=== PATIENT | male | born 1945 | race Caucasian/White ===

== ENCOUNTER 2017-12-08 11:47 | Inpatient (IN) | payer MEDICARE ==
[~2017-12-08] VITALS: Ht 172.7 cm; Wt 81.8 kg
[~2017-12-08 11:47] MED LIST: CELE10TA9 PO; DOXE10CA; EMTR200; HYDR12.56 PO; LORT5TAB PO; [UNRECOGNIZED DRUG - CODE]
[2017-12-08 11:51] VITALS: BP 143/92; PULSE 93; RESP 17; TEMP 98.4; O2SAT 98
[2017-12-08 12:08] VITALS: RESP 16; O2SAT 97
[2017-12-08] MEDS ORDERED: LEVO.05 PO (12:11)
[2017-12-08] MEDS ORDERED: METF1000 PO (12:11)
[2017-12-08] MEDS ORDERED: BACL10TA PO (12:11)
[2017-12-08] MEDS ORDERED: EMTR200 PO (12:11)
[2017-12-08] MEDS ORDERED: AMBI5TAB PO (12:13)
[2017-12-08] MEDS ORDERED: PRAV40TA2 PO (12:13)
[2017-12-08] MEDS: SODIUM CHLOR 0.9% 1000 ML INJ 1,000 ML IV SCH ×2 (12:15→22:03)
[2017-12-08] MEDS ORDERED: PROCHLORPERAZINE INJ 10 MG/2 ML VIAL IV PUSH ONE (12:15)
[2017-12-08 12:39] LABS: AUTOMATED NEUTROPHIL # 5.2 TH/MM3 (1.8-7.7); BASOPHIL % 0.3 % (0.0-2.0); EOSINOPHIL % 0.6 % (0.0-4.0); HEMOGLOBIN 15.1 GM/DL (13.0-17.0); LYMPHOCYTE # 1.3 TH/MM3 (1.0-4.8); MEAN CORPUSCULAR HEMOGLOBIN 34.3 PG (27.0-34.0); MEAN PLATELET VOLUME 9.3 FL (7.0-11.0); MONO % 15.2 % (0.0-8.0); MONOCYTE # 1.2 TH/MM3 (0-0.9); NEUT % 66.9 % (16.0-70.0); PLATELET COUNT 132 TH/MM3 (150-450); RED BLOOD COUNT 4.39 MIL/MM3 (4.50-5.90); RED CELL DISTRIBUTION WIDTH 12.7 % (11.6-17.2); WHITE BLOOD COUNT 7.8 TH/MM3 (4.0-11.0)
--- NOTE | 2017-12-08 12:45 | RADRPT ---
EXAM DATE/TIME: 12/08/2017 12:13 [place] COMPARISON: No previous studies available for comparison. INDICATIONS : Nausea, vomiting, and coughing MEDICAL HISTORY : Diabetes mellitus type II. HIV. thyroid SURGICAL HISTORY : None. ENCOUNTER: Initial ACUITY: 1 month PAIN SCORE: 0/10 LOCATION: Bilateral chest FINDINGS: A single view of the chest demonstrates minimal basilar atelectasis. No effusion. No pneumothorax. He art size mildly enlarged. CONCLUSION: 1. Minimal basal atelectasis. No effusion or pneumothorax. Silas Maradiaga MD on December 08, 2017 at 12:41 Board Certified Radiologist. This report was verified electronically.
[2017-12-08 12:57] LABS: ALBUMIN 4.2 GM/DL (3.4-5.0); AST (GOT) 59 U/L (15-37); BICARBONATE 23.6 MEQ/L (21.0-32.0); BLOOD UREA NITROGEN 17 MG/DL (7-18); CALCIUM 9.1 MG/DL (8.5-10.1); CHLORIDE 103 MEQ/L (98-107); CREATININE 1.12 MG/DL (0.60-1.30); GLOMERULAR FILTRATION RATE 65 ML/MIN (>89); GLUCOSE,RANDOM 127 MG/DL (74-106); SODIUM (NA) 137 MEQ/L (136-145)
[2017-12-08 12:58] LABS: ALT (GPT) 48 U/L (12-78)
[2017-12-08 13:12] LABS: ALKALINE PHOSPHATASE 108 U/L (45-117); TOTAL BILIRUBIN ADULT 0.7 MG/DL (0.2-1.0); TOTAL PROTEIN 8.1 GM/DL (6.4-8.2); TROPONIN I LESS THAN 0.02 NG/ML (0.02-0.05)
[2017-12-08 13:28] LABS: AMORPHOUS SEDIMENT, URINE RARE; BACTERIA, URINE MOD /hpf; BILIRUBIN, URINE NEG (NEG); BLOOD, URINE MOD (NEG); GLUCOSE,URINE 300 mg/dL (NEG); KETONE, URINE TRACE mg/dL (NEG); MUCUS URINE FEW /lpf (OCC); NITRITE,URINE NEG (NEG); PH, URINE 6.5 (5.0-8.5); SQUAMOUS EPITHELIAL CELL URINE <1 /hpf (0-5); URINE COLOR YELLOW (YELLW/STRAW); URINE LEUKOCYTE ESTERASE MOD (NEG)
[2017-12-08 13:42] VITALS: BP 128/68; PULSE 84; RESP 16; TEMP 97.8; O2SAT 97
[2017-12-08] MEDS ORDERED: cefTRIAXone INJ 1,000 MG in SODIUM CHLORIDE 0.9% INJ 100 ML IV ONE (14:00)
[2017-12-08] MEDS ORDERED: BISACODYL 10 MG SUPP RECTAL PRN (14:30)
[2017-12-08] MEDS ORDERED: NALOXONE HCL 0.4 MG/ML AMP IV PUSH PRN (14:30)
[2017-12-08] MEDS ORDERED: SODIUM CHLORIDE 0.9% FLUSH 10 ML FLUSH IV FLUSH PRN (14:30)
[2017-12-08] MEDS ORDERED: LACTULOSE SYRUP 20 GM/30 ML CUP PO PRN (15:00)
[2017-12-08] MEDS ORDERED: ACETAMINOPHEN 325 MG TAB PO PRN (15:00)
[2017-12-08] MEDS ORDERED: MAGNESIUM HYDROXIDE SUSP 30 ML CUP PO PRN (15:00)
[2017-12-08] MEDS ORDERED: ONDANSETRON HCL 4 MG/2 ML VIAL IVP PRN (15:00)
[2017-12-08] MEDS ORDERED: SENNOSIDES 8.6 MG TAB PO PRN (15:00)
[2017-12-08] MEDS ORDERED: SODIUM CHLOR 0.45% 1000 ML INJ 1,000 ML IV SCH (15:00)
--- NOTE | 2017-12-08 15:08 | PD ---
HPI Chief Complaint: GI Complaint Time Seen by Provider: 12:03 Travel History International Travel<30 days: No Contact w/Intl Traveler<30days: No Traveled to known affect area: No History of Present Illness HPI 72-year-old male with a history of HIV disease, who presents today with nausea vomiting diarrhea. Patient states she has had loose stools 4 months. Patient was up on the fifth floor with his significant other when he started experiencing severe nausea and vomiting. He states he was unable to hold anything down. Reports generalized weakness. He denies any fevers, chills. He states that he has had no recent URI symptoms. He denies any abdominal pain. He states his significant other is being seen here for knee related problem from a fracture. There are no other complaints at the time of my examination. PFSH Past Medical History Autoimmune Disease: Yes (AIDS) Cardiovascular Problems: Yes (HBP) High Cholesterol: Yes Diabetes: Yes Patient Takes Glucophage: Yes Diminished Hearing: Yes Hypertension: Yes Immune Disorder: Yes (AIDS) Thyroid Disease: Yes Tetanus Vaccination: > 5 Years Influenza Vaccination: Yes Past Surgical History Tonsillectomy: Yes Other Surgery: Yes (CYST) Social History Alcohol Use: Yes (SOCIAL) Tobacco Use: Yes (OCCAS- CIGAR) Substance Use: No Allergies-Medications (Allergen,Severity, Reaction): Coded Allergies: No Known Allergies (Verified Allergy, Unknown, 12/08/17) Reported Meds & Prescriptions Reported Meds & Active Scripts Active Reported Ambien (Zolpidem Tartrate) 5 Mg Tab 5 Mg PO HS PRN Pravastatin 40 Mg Tab 40 Mg PO DAILY Metformin (Metformin HCl) 1,000 Mg Tab 1,000 Mg PO BIDPC Synthroid (Levothyroxine Sodium) 50 Mcg Tab 50 Mcg PO DAILY Emtriva (Emtricitabine) 200 Mg Cap 200 Mg PO DAILY Baclofen 10 Mg Tab 10 Mg PO TID Review of Systems Except as stated in HPI: all other systems reviewed are Neg General / Constitutional: No: Fever, Chills Eyes: No: Diploplia, Blurred Vision HENT: Positive: Headaches (Head will hurt when he vomits but not), Lightheadedness, No: Neck Stiffness, Neck Pain ( without vomiting.) Cardiovascular: No: Chest Pain or Discomfort, Palpitations, Irregular Rhythm Respiratory: No: Cough, Shortness of Breath Gastrointestinal: Positive: Nausea, Vomiting, Diarrhea, No: Abdominal Pain, Hematemesis (4 months), Hematochezia Genitourinary: Positive: Dysuria, Other (The patient self caths himself. He states he has chronic UTIs.), No: Frequency Musculoskeletal: Positive: Weakness (Generalized), No: Pain Skin: No Rash, No Lesions Neurologic: Positive: Weakness, Headache, No: Dizziness (Generalized), Sensory Disturbance (With vomiting) Physical Exam Narrative GENERAL: Well-developed male who is actively vomiting when I entered the room. SKIN: Focused skin assessment warm/dry. HEAD: Atraumatic. Normocephalic. EYES: Pupils equal and round. No scleral icterus. No injection or drainage. ENT: No nasal bleeding or discharge. Mucous membranes pink and dry. NECK: Trachea midline. No JVD. Supple. CARDIOVASCULAR: Regular rate and rhythm. No murmur appreciated. RESPIRATORY: No accessory muscle use. Clear to auscultation. Breath sounds equal bilaterally. GASTROINTESTINAL: Abdomen soft, non-tender, nondistended. No rebound or guarding. MUSCULOSKELETAL: No obvious deformities. No clubbing. No cyanosis. No edema. NEUROLOGICAL: Awake and alert. No obvious cranial nerve deficits. Motor grossly within normal limits. Normal speech. PSYCHIATRIC: Appropriate mood and affect; insight and judgment normal. Data Data Last Documented VS Vital Signs Date Time Temp Pulse Resp B/P (MAP) Pulse Ox O2 Delivery O2 Flow Rate FiO2 12/08/17 13:42 97.8 84 16 128/68 (88) 97 Room Air Orders Orders Electrocardiogram (12/08/17 12:03) Complete Blood Count With Diff (12/08/17 12:03) Comprehensive Metabolic Panel (12/08/17 12:03) Ckmb (Isoenzyme) Profile (12/08/17 12:03) Troponin I (12/08/17 12:03) Lipase (12/08/17 12:03) Urinalysis - C+S If Indicated (12/08/17 12:03) Enteric Path (Stool) (12/08/17 12:03) C Diff Toxin Pcr (12/08/17 12:03) Chest, Single Ap (12/08/17 12:03) Iv Access Insert/Monitor (12/08/17 12:03) Ecg Monitoring (12/08/17 12:03) Oximetry (12/08/17 12:03) Giardia Antigen (Stool) (12/08/17 12:03) Stool Ova And Parasite Screen (12/08/17 12:03) Prochlorperazine Inj (Compazine Inj) (12/08/17 12:15) Sodium Chlor 0.9% 1000 Ml Inj (Ns 1000 M (12/08/17 12:15) Cath For Specimen (12/08/17 12:37) CKMB (12/08/17 12:14) CKMB% (12/08/17 12:14) Urine Culture (12/08/17 12:40) Blood Culture (12/08/17 14:00) Ceftriaxone Inj (Rocephin Inj) (12/08/17 14:00) Admit To Inpatient (12/08/17 ) Vital Signs (Adult) Q4H (12/08/17 14:18) Activity Oob Ad [place] (12/08/17 14:18) Diet 1800 Ada Cons Carb (12/08/17 Dinner) Sodium Chlor 0.45% 1000 Ml Inj (1/2 Ns 1 (12/08/17 15:00) Sodium Chloride 0.9% Flush (Ns Flush) (12/08/17 14:30) Sodium Chloride 0.9% Flush (Ns Flush) (12/08/17 21:00) Acetaminophen (Tylenol) (12/08/17 15:00) Ondansetron Inj (Zofran Inj) (12/08/17 15:00) Basic Metabolic Panel (Bmp) (12/09/17 06:00) Complete Blood Count With Diff (12/09/17 06:00) Scd Bilateral/Knee High OSMANY.BID (12/08/17 14:18) Naloxone Inj (Narcan Inj) (12/08/17 14:30) Magnesium Hydroxide Liq (Milk Of Magnesi (12/08/17 15:00) Sennosides (Senokot) (12/08/17 15:00) Bisacodyl Supp (Dulcolax Supp) (12/08/17 14:30) Lactulose Liq (Lactulose Liq) (12/08/17 15:00) Admit Order (Ed Use Only) (12/08/17 14:57) Labs Laboratory Tests Test 12/08/17 12:14 12/08/17 12:40 White Blood Count 7.8 TH/MM3 Red Blood Count 4.39 MIL/MM3 Hemoglobin 15.1 GM/DL Hematocrit 43.0 % Mean Corpuscular Volume 98.0 FL Mean Corpuscular Hemoglobin 34.3 PG Mean Corpuscular Hemoglobin Concent 35.0 % Red Cell Distribution Width 12.7 % Platelet Count 132 TH/MM3 Mean Platelet Volume 9.3 FL Neutrophils (%) (Auto) 66.9 % Lymphocytes (%) (Auto) 17.0 % Monocytes (%) (Auto) 15.2 % Eosinophils (%) (Auto) 0.6 % Basophils (%) (Auto) 0.3 % Neutrophils # (Auto) 5.2 TH/MM3 Lymphocytes # (Auto) 1.3 TH/MM3 Monocytes # (Auto) 1.2 TH/MM3 Eosinophils # (Auto) 0.0 TH/MM3 Basophils # (Auto) 0.0 TH/MM3 CBC Comment DIFF FINAL Differential Comment Blood Urea Nitrogen 17 MG/DL Creatinine 1.12 MG/DL Random Glucose 127 MG/DL Total Protein 8.1 GM/DL Albumin 4.2 GM/DL Calcium Level 9.1 MG/DL Alkaline Phosphatase 108 U/L Aspartate Amino Transf (AST/SGOT) 59 U/L Alanine Aminotransferase (ALT/SGPT) 48 U/L Total Bilirubin 0.7 MG/DL Sodium Level 137 MEQ/L Potassium Level 3.8 MEQ/L Chloride Level 103 MEQ/L Carbon Dioxide Level 23.6 MEQ/L Anion Gap 10 MEQ/L Estimat Glomerular Filtration Rate 65 ML/MIN Total Creatine Kinase 1168 U/L Creatine Kinase MB 6.2 NG/ML Creatine Kinase MB % 0.5 % Troponin I LESS THAN 0.02 NG/ML Lipase 254 U/L Urine Color YELLOW Urine Turbidity CLEAR Urine pH 6.5 Urine Specific [place] 1.018 Urine Protein 30 mg/dL Urine Glucose (UA) 300 mg/dL Urine Ketones TRACE mg/dL Urine Occult Blood MOD Urine Nitrite NEG Urine Bilirubin NEG Urine Urobilinogen LESS THAN 2.0 MG/DL Urine Leukocyte Esterase MOD Urine RBC 6 /hpf Urine WBC 37 /hpf Urine Squamous Epithelial Cells <1 /hpf Urine Amorphous Sediment RARE Urine Bacteria MOD /hpf Urine Mucus FEW /lpf Microscopic Urinalysis Comment CULTURE INDICATED MDM Medical Decision Making Medical Screen Exam Complete: Yes Emergency Medical Condition: Yes Differential Diagnosis Gastroenteritis versus metabolic derangement versus UTI Narrative Course 72-year-old male presents with nausea vomiting. Patient also states he has had foul-smelling urine and discomfort when trying to urinate. He does self cath himself as well. The patient is noted to have a UTI. He is also noted to have rhabdomyolysis. He has been started on IV fluids. He has been started on Rocephin. Cultures have been sent. Diagnosis Primary Impression: Rhabdomyolysis Additional Impressions: UTI (urinary tract infection) History of HIV disease Admitting Information Admitting Physician Requests: Admit Guy Velasco MD Dec 08, 2017 15:08
[2017-12-08 15:45] VITALS: BP 108/81; TEMP 97.7
[2017-12-08 16:00] VITALS: BP 129/75; PULSE 81; RESP 20; TEMP 99.4; O2SAT 96
[2017-12-08] MEDS ORDERED: DEXTROSE 50% IN WATER 50 ML VIAL(D50) IV PUSH PRN (18:00)
[2017-12-08] MEDS ORDERED: GLUCAGON 1 MG/ML VIAL OTHER PRN (18:00)
[2017-12-08] MEDS ORDERED: ZOLPIDEM TARTRATE 5 MG TAB PO PRN (18:00)
--- NOTE | 2017-12-08 18:03 | HHI.HP ---
HPI Service [facility] Primary Care Physician Unknown Admission Diagnosis rhabdomyolisis, uti, diarrhea, hx of hiv disease Diagnoses: (1) Diarrhea (2) Rhabdomyolysis (3) UTI (urinary tract infection) Chief Complaint: Intractable nausea and vomiting Travel History International Travel<30 Days: No Contact w/Intl Traveler <30 Da: No Traveled to Known Affected Are: No History of Present Illness 72-year-old man with a history of HIV presenting to the ED for evaluation of 3 day history of intractable nausea and vomiting as well as formal history of loose stools. Patient report shortness of breath as well as abdominal pain otherwise denies any chest pain. He was found in the ED to have CK of 1100+ as well as abnormal UA for which she was started on Rocephin IV. Patient denies any GI bleed. Review of Systems Except as stated in HPI: all other systems reviewed are Neg Past Family Social History Past Medical History Autoimmune Disease: Yes (AIDS) Cardiovascular Problems: Yes (HBP) High Cholesterol: Yes Diabetes: Yes Patient Takes Glucophage: Yes Diminished Hearing: Yes Hypertension: Yes Immune Disorder: Yes (AIDS) Thyroid Disease: Yes Past Surgical History Tonsillectomy: Yes Other Surgery: Yes (CYST) Reported Medications Ambien (Zolpidem Tartrate) 5 Mg Tab 5 Mg PO HS PRN Pravastatin 40 Mg Tab 40 Mg PO DAILY Metformin (Metformin HCl) 1,000 Mg Tab 1,000 Mg PO BIDPC Synthroid (Levothyroxine Sodium) 50 Mcg Tab 50 Mcg PO DAILY Emtriva (Emtricitabine) 200 Mg Cap 200 Mg PO DAILY Baclofen 10 Mg Tab 10 Mg PO TID Allergies: Coded Allergies: No Known Allergies (Verified Allergy, Unknown, 12/08/17) Family History Family history positive for heart disease. Social History Alcohol Use: Yes (SOCIAL) Tobacco Use: Yes (OCCAS- CIGAR) Substance Use: No Physical Exam Vital Signs Vital Signs Date Time Temp Pulse Resp B/P (MAP) Pulse Ox O2 Delivery O2 Flow Rate FiO2 12/08/17 15:45 97.7 76 15 108/81 (90) 99 12/08/17 13:42 97.8 84 16 128/68 (88) 97 Room Air 12/08/17 12:08 16 97 Room Air 12/08/17 11:55 17 12/08/17 11:51 98.4 93 17 143/92 (109) 98 Physical Exam GENERAL: This is a well-nourished, well-developed patient, in no apparent distress. SKIN: No rashes, ecchymoses or lesions. Cool and dry. HEAD: Atraumatic. Normocephalic. No temporal or scalp tenderness. EYES: Pupils equal round and reactive. Extraocular motions intact. No scleral icterus. No injection or drainage. ENT: Nose without bleeding, purulent drainage or septal hematoma. Throat without erythema, tonsillar hypertrophy or exudate. Uvula midline. Airway patent. NECK: Trachea midline. No JVD or lymphadenopathy. Supple, nontender, no meningeal signs. CARDIOVASCULAR: Regular rate and rhythm without murmurs, gallops, or rubs. RESPIRATORY: Clear to auscultation. Breath sounds equal bilaterally. No wheezes , rales, or rhonchi. GASTROINTESTINAL: Abdomen soft, non-tender, nondistended. No hepato-splenomegaly , or palpable masses. No guarding. MUSCULOSKELETAL: Extremities without clubbing, cyanosis, or edema. No joint tenderness, effusion, or edema noted. No calf tenderness. Negative Homans sign bilaterally. NEUROLOGICAL: Awake and alert. Cranial nerves II through XII intact. Motor and sensory grossly within normal limits. Five out of 5 muscle strength in all muscle groups. Normal speech. Laboratory Laboratory Tests Test 12/08/17 12:14 12/08/17 12:40 White Blood Count 7.8 Red Blood Count 4.39 Hemoglobin 15.1 Hematocrit 43.0 Mean Corpuscular Volume 98.0 Mean Corpuscular Hemoglobin 34.3 Mean Corpuscular Hemoglobin Concent 35.0 Red Cell Distribution Width 12.7 Platelet Count 132 Mean Platelet Volume 9.3 Neutrophils (%) (Auto) 66.9 Lymphocytes (%) (Auto) 17.0 Monocytes (%) (Auto) 15.2 Eosinophils (%) (Auto) 0.6 Basophils (%) (Auto) 0.3 Neutrophils # (Auto) 5.2 Lymphocytes # (Auto) 1.3 Monocytes # (Auto) 1.2 Eosinophils # (Auto) 0.0 Basophils # (Auto) 0.0 CBC Comment DIFF FINAL Differential Comment Blood Urea Nitrogen 17 Creatinine 1.12 Random Glucose 127 Total Protein 8.1 Albumin 4.2 Calcium Level 9.1 Alkaline Phosphatase 108 Aspartate Amino Transf (AST/SGOT) 59 Alanine Aminotransferase (ALT/SGPT) 48 Total Bilirubin 0.7 Sodium Level 137 Potassium Level 3.8 Chloride Level 103 Carbon Dioxide Level 23.6 Anion Gap 10 Estimat Glomerular Filtration Rate 65 Total Creatine Kinase 1168 Creatine Kinase MB 6.2 Creatine Kinase MB % 0.5 Troponin I LESS THAN 0.02 Lipase 254 Urine Color YELLOW Urine Turbidity CLEAR Urine pH 6.5 Urine Specific [place] 1.018 Urine Protein 30 Urine Glucose (UA) 300 Urine Ketones TRACE Urine Occult Blood MOD Urine Nitrite NEG Urine Bilirubin NEG Urine Urobilinogen LESS THAN 2.0 Urine Leukocyte Esterase MOD Urine RBC 6 Urine WBC 37 Urine Squamous Epithelial Cells <1 Urine Amorphous Sediment RARE Urine Bacteria MOD Urine Mucus FEW Microscopic Urinalysis Comment CULTURE INDICATED Date/Time Source Procedure Growth Status 12/08/17 14:15 Blood Peripheral Aerobic Blood Culture Pending Received 12/08/17 14:15 Blood Peripheral Anaerobic Blood Culture Pending Received 12/08/17 12:40 Urine Clean Catch Urine Culture Pending Received Result Diagram: 12/08/17 1214 12/08/17 1214 Imaging Last Impressions Chest X-Ray 12/08/17 1203 Signed Impressions: Service Date/Time: Friday, December 08, 2017 12:13 - CONCLUSION: 1. Minimal basal atelectasis. No effusion or pneumothorax. Silas Maradiaga MD Septic Shock Reassessment Septic shock perfusion: reassessment completed Caprini VTE Risk Assessment Caprini VTE Risk Assessment: Mod/High Risk (score >= 2) Caprini Risk Assessment Model Point Value = 1 Point Value = 2 Point Value = 3 Point Value = 5 Age 41-60 Minor surgery BMI > 25 kg/m2 Swollen legs Varicose veins or History of unexplained or recurrent spontaneous Oral contraceptives or hormone replacement Sepsis (< 1 month) Serious lung disease, including pneumonia (< 1 month) Abnormal pulmonary function Acute myocardial infarction Congestive heart failure (< 1 month) History of inflammatory bowel disease Medical patient at bed rest Age 61-74 Arthroscopic surgery Major open surgery (> 45 min) Laparoscopic surgery (> 45 min) Malignancy Confined to bed (> 72 hours) Immobilizing plaster cast Central venous access Age >= 75 History of VTE Family history of VTE Factor V Leiden Prothrombin [id number] Lupus anticoagulant Anticardiolipin antibodies Elevated serum homocysteine Heparin-induced thrombocytopenia Other congenital or acquired thrombophilia Stroke (< 1 month) Elective arthroplasty Hip, pelvis, or leg fracture Acute spinal cord injury (< 1 month) Prophylaxis Regimen Total Risk Factor Score Risk Level Prophylaxis Regimen 0-1 Low Early ambulation 2 Moderate Order ONE of the following: *Sequential Compression Device (SCD) *Heparin 5000 units SQ BID 3-4 Higher Order ONE of the following medications: *Heparin 5000 units SQ TID *Enoxaparin/Lovenox 40 mg SQ daily (WT < 150 kg, CrCl > 30 mL/min) *Enoxaparin/Lovenox 30 mg SQ daily (WT < 150 kg, CrCl > 10-29 mL/min) *Enoxaparin/Lovenox 30 mg SQ BID (WT < 150 kg, CrCl > 30 mL/min) AND/OR *Sequential Compression Device (SCD) 5 or more Highest Order ONE of the following medications: *Heparin 5000 units SQ TID (Preferred with Epidurals) *Enoxaparin/Lovenox 40 mg SQ daily (WT < 150 kg, CrCl > 30 mL/min) *Enoxaparin/Lovenox 30 mg SQ daily (WT < 150 kg, CrCl > 10-29 mL/min) *Enoxaparin/Lovenox 30 mg SQ BID (WT < 150 kg, CrCl > 30 mL/min) AND *Sequential Compression Device (SCD) Assessment and Plan Problem List: (1) Rhabdomyolysis ICD Code: M62.82 - Rhabdomyolysis Status: Acute (2) UTI (urinary tract infection) ICD Code: N39.0 - Urinary tract infection, site not specified Status: Acute (3) Diarrhea ICD Code: R19.7 - Diarrhea, unspecified Assessment and Plan 72 years old man with Diarrhea r/o C diff diarrhea with PCR Check Stool for Ova and Parasites Due to patient history of HIV, will check Cryptospora, Cryptosporidium, Giardia, Rota and Enteric path Rhabdomyo Treat with IVF hydration,Monitor CK UTI Continue with Rocephin IV [id number] pending Urine culture HIV Resume HAART therapy Hypertension, Hyperlipidemia, Hypothyroidism Resume outpatient medications Diabetes 2 Resume Metformin and start ISS DVT prophylaxis: B-SCDs Code Status Full code Discussed Condition With Patient, ED physician Physician Certification 2 Midnight Certification Type: Admission for Inpatient Services Order for Inpatient Services The services are ordered in accordance with Medicare regulations or non- Medicare payer requirements, as applicable. In the case of services not specified as inpatient-only, they are appropriately provided as inpatient services in accordance with the 2-midnight benchmark. Estimated LOS (days): 2 days is the estimated time the patient will need to remain in the hospital, assuming treatment plan goals are met and no additional complications. Post-Hospital Plan: Not yet determined Abdoul Crouch MD Dec 08, 2017 18:03
[2017-12-08] MEDS ORDERED: RESP: ALBUTEROL 2.5 MG/IPRATROPIUM 0.5 MG NEB (PRN) NEB (18:30)
[2017-12-08] MEDS ORDERED: BENZONATATE 100 MG CAP PO PRN (18:30)
[2017-12-08] MEDS ORDERED: ENALAPRILAT 2.5 MG/2 ML VIAL IV PUSH PRN (18:30)
[2017-12-08] MEDS: metFORMIN HCL 500 MG TAB PO SCH (18:56)
[2017-12-08] MEDS: BACLOFEN 10 MG TAB PO SCH (18:56)
[2017-12-08] MEDS ORDERED: EMTR1TAB4 PO (19:47)
[2017-12-08] MEDS ORDERED: TIMO0.5S30 RIGHT EYE (19:47)
[2017-12-08 20:00] VITALS: BP 137/81; PULSE 80; RESP 20; TEMP 99.8; O2SAT 95
[2017-12-08] MEDS: SODIUM CHLORIDE 0.9% FLUSH 10 ML FLUSH IV FLUSH SCH (21:00)
[2017-12-08] MEDS: INSULIN ASPART SUPPLEMENTAL SCALE SQ SCH (21:00)
--- NOTE | 2017-12-08 21:39 | HHI.PR ---
Addendum to Inpatient Note Addendum Reason: Additional Documentation Additional Information Discussion between pharmacist, nurse, and me regarding patient's antiretroviral medication regimen - there is some duplication of medication in the med rec as it stands. The nurse has discussed this with the patient and the medications will be brought in tomorrow so that they can be personally viewed by the RN and medication reconciliation can be corrected. In the interim, all HIV medications are on hold until home medication reconciliation is completed as, per pharmacist, they are of limited benefit as currently ordered. Eufemia Sweeney Dec 08, 2017 21:39
[2017-12-08] MEDS: guaiFENesin E.R. 600 MG TAB PO SCH (22:08)
[2017-12-08] MEDS: TIMOLOL MALEATE 0.5% OPHT SOLN 5 ML BTL RIGHT EYE SCH (22:08)
[2017-12-09] VITALS: BP 144/76; PULSE 76; RESP 18; TEMP 98.2; O2SAT 95
[2017-12-09] MEDS: SODIUM CHLOR 0.9% 1000 ML INJ 1,000 ML IV SCH ×4 (02:32→22:15)
[2017-12-09 04:00] VITALS: BP 108/64; PULSE 81; RESP 16; TEMP 98.4; O2SAT 95
[2017-12-09] MEDS: LEVOTHYROXINE SODIUM 50 MCG TAB PO SCH (06:06)
[2017-12-09 08:00] VITALS: BP 146/79; PULSE 76; RESP 20; TEMP 99.1; O2SAT 94
[2017-12-09] MEDS: INSULIN ASPART SUPPLEMENTAL SCALE SQ SCH ×4 (08:00→20:20)
[2017-12-09 08:37] LABS: AUTOMATED NEUTROPHIL # 3.4 TH/MM3 (1.8-7.7); BASOPHIL % 0.4 % (0.0-2.0); EOSINOPHIL % 0.3 % (0.0-4.0); HEMATOCRIT 37.6 % (39.0-51.0); HEMOGLOBIN 13.4 GM/DL (13.0-17.0); LYMPH % 24.9 % (9.0-44.0); LYMPHOCYTE # 1.4 TH/MM3 (1.0-4.8); MEAN CELL VOLUME 97.2 FL (80.0-100.0); MEAN CORPUSCULAR HEMOGLOBIN 34.7 PG (27.0-34.0); MEAN CORPUSCULAR HGB CONC 35.7 % (32.0-36.0); MEAN PLATELET VOLUME 8.7 FL (7.0-11.0); MONO % 14.7 % (0.0-8.0); MONOCYTE # 0.8 TH/MM3 (0-0.9); NEUT % 59.7 % (16.0-70.0); PLATELET COUNT 104 TH/MM3 (150-450); RED BLOOD COUNT 3.87 MIL/MM3 (4.50-5.90); RED CELL DISTRIBUTION WIDTH 12.8 % (11.6-17.2); WHITE BLOOD COUNT 5.7 TH/MM3 (4.0-11.0)
[2017-12-09] MEDS: SODIUM CHLORIDE 0.9% FLUSH 10 ML FLUSH IV FLUSH SCH ×2 (09:00→20:20)
[2017-12-09] MEDS ORDERED: EMTRICITABINE 200 MG CAP PO SCH (09:00)
[2017-12-09 09:03] LABS: BICARBONATE 25.4 MEQ/L (21.0-32.0); BLOOD UREA NITROGEN 14 MG/DL (7-18); CALCIUM 8.2 MG/DL (8.5-10.1); CHLORIDE 105 MEQ/L (98-107); CREATININE 0.85 MG/DL (0.60-1.30); GLOMERULAR FILTRATION RATE 89 ML/MIN (>89); GLUCOSE,RANDOM 120 MG/DL (74-106); SODIUM (NA) 140 MEQ/L (136-145)
[2017-12-09] MEDS: TIMOLOL MALEATE 0.5% OPHT SOLN 5 ML BTL RIGHT EYE SCH ×2 (09:15→20:29)
[2017-12-09] MEDS: guaiFENesin E.R. 600 MG TAB PO SCH ×2 (09:16→20:28)
[2017-12-09] MEDS: metFORMIN HCL 500 MG TAB PO SCH ×2 (09:16→17:53)
[2017-12-09] MEDS: PRAVASTATIN SOD 40 MG TAB PO SCH (09:16)
[2017-12-09] MEDS: cefTRIAXone INJ 1,000 MG in SODIUM CHLORIDE 0.9% INJ 100 ML IV SCH (09:16)
[2017-12-09] MEDS: BACLOFEN 10 MG TAB PO SCH ×3 (09:23→17:52)
--- NOTE | 2017-12-09 11:09 | HHI.PR ---
Subjective Remarks Follow intractable nausea and emesis/HIV diarrhea/rhabdomyolysis 12/09/17-patient seen and examined; reports some improvement of nausea and emesis since admission. NO diarrhea as well since admission. Objective Vitals Vital Signs Date Time Temp Pulse Resp B/P (MAP) Pulse Ox O2 Delivery O2 Flow Rate FiO2 12/09/17 08:00 99.1 76 20 146/79 (101) 94 12/09/17 04:00 Room Air 12/09/17 04:00 98.4 81 16 108/64 (79) 95 12/09/17 00:00 98.2 76 18 144/76 (98) 95 12/09/17 00:00 Room Air 12/08/17 20:00 Room Air 12/08/17 20:00 99.8 80 20 137/81 (99) 95 12/08/17 16:00 99.4 81 20 129/75 (93) 96 12/08/17 15:45 97.7 76 15 108/81 (90) 99 12/08/17 13:42 97.8 84 16 128/68 (88) 97 Room Air 12/08/17 12:08 16 97 Room Air 12/08/17 11:55 17 12/08/17 11:51 98.4 93 17 143/92 (109) 98 I/O 12/08/17 12/08/17 12/08/17 12/09/17 12/09/17 12/09/17 07:00 15:00 23:00 07:00 15:00 23:00 Intake Total 1100 ml 823 ml 1720 ml Output Total 550 ml 750 ml Balance 1100 ml 273 ml 970 ml Intake Oral 720 ml IV Total 1100 ml 823 ml 1000 ml Output Urine Total 550 ml 750 ml # Voids 3 # Bowel Movements 0 Result Diagram: 12/09/17 0815 12/09/17 0815 Imaging Last Impressions Chest X-Ray 12/08/17 1203 Signed Impressions: Service Date/Time: Friday, December 08, 2017 12:13 - CONCLUSION: 1. Minimal basal atelectasis. No effusion or pneumothorax. Silas Maradiaga MD Objective Remarks GENERAL: NAD SKIN: Warm and dry. HEAD: Normocephalic. EYES: No scleral icterus. No injection or drainage. NECK: Supple, trachea midline. No JVD or lymphadenopathy. CARDIOVASCULAR: Regular rate and rhythm without murmurs, gallops, or rubs. RESPIRATORY: Breath sounds equal bilaterally. No accessory muscle use. GASTROINTESTINAL: Abdomen soft, non-tender, nondistended. MUSCULOSKELETAL: No cyanosis, or edema. BACK: Nontender without obvious deformity. No CVA tenderness. A/P Problem List: (1) Diarrhea ICD Code: R19.7 - Diarrhea, unspecified (2) Rhabdomyolysis ICD Code: M62.82 - Rhabdomyolysis Status: Acute (3) UTI (urinary tract infection) ICD Code: N39.0 - Urinary tract infection, site not specified Status: Acute Assessment and Plan 72 years old man with Diarrhea-likely HIV Diarrhea C diff PCR negative Continue to monitor Stool for Ova and Parasites Due to patient history of HIV, continue Cryptospora, Cryptosporidium, Giardia , and Enteric path. Rota negative Rhabdomyolysis Continue with IVF hydration,Monitor CK UTI Continue with Rocephin IV [id number] pending Urine culture HIV Continue HAART therapy Hypertension, Hyperlipidemia, Hypothyroidism Continue outpatient medications Diabetes 2 Continue Metformin and start ISS DVT prophylaxis: Yesy-Abdoul Hair MD Dec 09, 2017 11:09
[2017-12-09 12:00] VITALS: BP 125/79; PULSE 77; RESP 20; TEMP 98.6; O2SAT 95
[2017-12-09 16:00] VITALS: BP 133/80; PULSE 77; RESP 20; TEMP 98.6; O2SAT 94
[2017-12-09 16:59] LABS: HEMOGLOBIN A1C 6.1 % (4.3-6.0)
--- NOTE | 2017-12-09 18:27 | EKG ---
Date Performed: 12/08/2017 Time Performed: 12:23:51 PTAGE: 72 years EKG: Sinus rhythm NONSPECIFIC ST & T-WAVE ABNORMALITY BORDERLINE ECG NO PREVIOUS TRACING DOCTOR: Kathryn Nava Interpretating Date/Time 12/09/2017 18:21:13
[2017-12-09 20:00] VITALS: BP 145/88; PULSE 70; RESP 18; TEMP 97.7; O2SAT 97
[2017-12-09] MEDS ORDERED: [UNRECOGNIZED DRUG - OTHER] PO SCH (22:00)
[2017-12-09] MEDS ORDERED: NEVI200T PO (23:02)
[2017-12-09] MEDS ORDERED: VENL75TA (23:02)
[2017-12-09] MEDS ORDERED: MIRT1TAB PO (23:02)
[2017-12-09] MEDS ORDERED: LATA0.002 RIGHT EYE (23:02)
[2017-12-09] MEDS ORDERED: LISI-515 PO (23:02)
[2017-12-09] MEDS ORDERED: LATANOPROST 0.005% OPHT SOLN 2.5 ML BTL RIGHT EYE SCH (23:45)
[2017-12-09] MEDS: NEVIRAPINE 200 MG TAB PO SCH (23:45)
[2017-12-09] MEDS ORDERED: PILL SPLITTER OTHER PRN (23:45)
[2017-12-09] MEDS ORDERED: MIRTAZAPINE 15 MG TAB PO SCH (23:45)
[2017-12-10] VITALS: BP 157/90; PULSE 66; RESP 16; TEMP 98.4; O2SAT 96
[2017-12-10 04:00] VITALS: BP 134/74; PULSE 69; RESP 16; TEMP 97.9; O2SAT 96
[2017-12-10] MEDS: SODIUM CHLOR 0.9% 1000 ML INJ 1,000 ML IV SCH ×2 (04:55→11:36)
[2017-12-10] MEDS: LEVOTHYROXINE SODIUM 50 MCG TAB PO SCH (06:03)
[2017-12-10] MEDS: INSULIN ASPART SUPPLEMENTAL SCALE SQ SCH ×2 (08:00→12:45)
[2017-12-10 08:08] VITALS: BP 143/87; PULSE 71; RESP 18; TEMP 98.4; O2SAT 96
[2017-12-10] MEDS: cefTRIAXone INJ 1,000 MG in SODIUM CHLORIDE 0.9% INJ 100 ML IV SCH (08:57)
[2017-12-10] MEDS: BACLOFEN 10 MG TAB PO SCH ×2 (08:59→12:46)
[2017-12-10] MEDS ORDERED: TIMOLOL MALEATE 0.5% OPHT SOLN 5 ML BTL RIGHT EYE SCH (09:00)
[2017-12-10] MEDS: PRAVASTATIN SOD 40 MG TAB PO SCH (09:00)
[2017-12-10] MEDS: NEVIRAPINE 200 MG TAB PO SCH (09:00)
[2017-12-10] MEDS: SODIUM CHLORIDE 0.9% FLUSH 10 ML FLUSH IV FLUSH SCH (09:00)
[2017-12-10] MEDS ORDERED: LISINOPRIL 20 MG TAB PO SCH (09:00)
[2017-12-10] MEDS: guaiFENesin E.R. 600 MG TAB PO SCH (09:00)
[2017-12-10] MEDS ORDERED: VENLAFAXINE HCL 75 MG TAB PO SCH (09:00)
[2017-12-10] MEDS: metFORMIN HCL 500 MG TAB PO SCH (09:01)
[2017-12-10 12:08] VITALS: BP 133/73; PULSE 70; RESP 18; TEMP 97.9; O2SAT 96
--- NOTE | 2017-12-10 12:30 | HHI.PR ---
Subjective Remarks Follow intractable nausea and emesis/HIV diarrhea/rhabdomyolysis 12/09/17-patient seen and examined; reports some improvement of nausea and emesis since admission. NO diarrhea as well since admission. 12/10/17-patient seen and examined, still with some episodes of diarrhea however improved. Afebrile Objective Vitals Vital Signs Date Time Temp Pulse Resp B/P (MAP) Pulse Ox O2 Delivery O2 Flow Rate FiO2 12/10/17 08:08 98.4 71 18 143/87 (105) 96 12/10/17 07:00 Room Air 12/10/17 04:00 97.9 69 16 134/74 (94) 96 12/10/17 00:00 98.4 66 16 157/90 (112) 96 12/09/17 20:00 Room Air 12/09/17 20:00 97.7 70 18 145/88 (107) 97 12/09/17 16:00 98.6 77 20 133/80 (97) 94 I/O 12/09/17 12/09/17 12/09/17 12/10/17 12/10/17 12/10/17 07:00 15:00 23:00 07:00 15:00 23:00 Intake Total 1720 ml 1960 ml 1000 ml Output Total 750 ml 450 ml 300 ml Balance 970 ml 1510 ml 1000 ml -300 ml Intake Oral 720 ml 960 ml IV Total 1000 ml 1000 ml 1000 ml Output Urine Total 750 ml 450 ml 300 ml # Voids 3 # Bowel Movements 0 3 Result Diagram: 12/09/17 0815 12/09/17 0815 Objective Remarks GENERAL: NAD SKIN: Warm and dry. HEAD: Normocephalic. EYES: No scleral icterus. No injection or drainage. NECK: Supple, trachea midline. No JVD or lymphadenopathy. CARDIOVASCULAR: Regular rate and rhythm without murmurs, gallops, or rubs. RESPIRATORY: Breath sounds equal bilaterally. No accessory muscle use. GASTROINTESTINAL: Abdomen soft, non-tender, nondistended. MUSCULOSKELETAL: No cyanosis, or edema. BACK: Nontender without obvious deformity. No CVA tenderness. Procedures none A/P Problem List: (1) Diarrhea ICD Code: R19.7 - Diarrhea, unspecified (2) Rhabdomyolysis ICD Code: M62.82 - Rhabdomyolysis Status: Acute (3) UTI (urinary tract infection) ICD Code: N39.0 - Urinary tract infection, site not specified Status: Acute Assessment and Plan 72 years old man with Diarrhea-likely HIV Diarrhea C diff PCR negative Stool for Ova and Parasites negative Due to patient history of HIV, Cryptospora, Cryptosporidium pending, Giardia pending, and Enteric path negative. Rota negative Rhabdomyolysis Continue with IVF hydration,Monitor CK UTI d/c Rocephin IV as Urine culture negative HIV Continue HAART therapy Hypertension, Hyperlipidemia, Hypothyroidism Continue outpatient medications Diabetes 2 Continue Metformin and start ISS DVT prophylaxis: B-SCDs Problem Qualifiers (1) Diarrhea: Qualified Codes: R19.7 - Diarrhea, unspecified (2) Rhabdomyolysis: Qualified Codes: M62.82 - Rhabdomyolysis Abdoul Crouch MD Dec 10, 2017 12:30
--- NOTE | 2017-12-10 12:32 | HHI.DS ---
Discharge Summary Admission Date Dec 08, 2017 at 14:58 Discharge Date: Dec 10, 2017 Admitting Diagnosis rhabdomyolisis, uti, diarrhea, hx of hiv disease (1) Diarrhea ICD Code: R19.7 - Diarrhea, unspecified (2) Rhabdomyolysis ICD Code: M62.82 - Rhabdomyolysis Status: Acute (3) UTI (urinary tract infection) ICD Code: N39.0 - Urinary tract infection, site not specified Status: Acute Procedures none Brief History - From Admission 72-year-old man with a history of HIV presenting to the ED for evaluation of 3 day history of intractable nausea and vomiting as well as formal history of loose stools. Patient report shortness of breath as well as abdominal pain otherwise denies any chest pain. He was found in the ED to have CK of 1100+ as well as abnormal UA for which she was started on Rocephin IV. Patient denies any GI bleed. CBC/BMP: 12/09/17 0815 12/09/17 0815 Significant Findings Laboratory Tests Test 12/08/17 12:14 12/08/17 12:40 12/08/17 21:20 12/09/17 08:15 Red Blood Count 4.39 MIL/MM3 (4.50-5.90) 3.87 MIL/MM3 (4.50-5.90) Mean Corpuscular Hemoglobin 34.3 PG (27.0-34.0) 34.7 PG (27.0-34.0) Platelet Count 132 TH/MM3 (150-450) 104 TH/MM3 (150-450) Monocytes (%) (Auto) 15.2 % (0.0-8.0) 14.7 % (0.0-8.0) Monocytes # (Auto) 1.2 TH/MM3 (0-0.9) Random Glucose 127 MG/DL (74-106) 120 MG/DL (74-106) Aspartate Amino Transf (AST/SGOT) 59 U/L (15-37) Estimat Glomerular Filtration Rate 65 ML/MIN (>89) Total Creatine Kinase 1168 U/L (39-308) 1159 U/L (39-308) Creatine Kinase MB 6.2 NG/ML (0.5-3.6) 3.7 NG/ML (0.5-3.6) Troponin I LESS THAN 0.02 NG/ML Urine Protein 30 mg/dL (NEG-TRACE) Urine Glucose (UA) 300 mg/dL (NEG) Urine Ketones TRACE mg/dL (NEG) Urine Occult Blood MOD (NEG) Urine Leukocyte Esterase MOD (NEG) Urine RBC 6 /hpf (0-3) Urine WBC 37 /hpf (0-5) Urine Bacteria MOD /hpf (NONE) Urine Mucus FEW /lpf (OCC) Hematocrit 37.6 % (39.0-51.0) Calcium Level 8.2 MG/DL (8.5-10.1) Potassium Level 3.2 MEQ/L (3.5-5.1) Hemoglobin A1c 6.1 % (4.3-6.0) Test 12/10/17 06:35 Total Creatine Kinase 971 U/L (39-308) Creatine Kinase MB 5.5 NG/ML (0.5-3.6) Imaging Last Impressions Chest X-Ray 12/08/17 1203 Signed Impressions: Service Date/Time: Friday, December 08, 2017 12:13 - CONCLUSION: 1. Minimal basal atelectasis. No effusion or pneumothorax. Silas Maradiaga MD PE at Discharge GENERAL: NAD SKIN: Warm and dry. HEAD: Normocephalic. EYES: No scleral icterus. No injection or drainage. NECK: Supple, trachea midline. No JVD or lymphadenopathy. CARDIOVASCULAR: Regular rate and rhythm without murmurs, gallops, or rubs. RESPIRATORY: Breath sounds equal bilaterally. No accessory muscle use. GASTROINTESTINAL: Abdomen soft, non-tender, nondistended. MUSCULOSKELETAL: No cyanosis, or edema. BACK: Nontender without obvious deformity. No CVA tenderness. Hospital Course While in the hospital, patient was treated for Diarrhea-likely HIV Diarrhea C diff PCR negative Stool for Ova and Parasites negative Cryptospora negative, Cryptosporidium pending, Giardia pending, and Enteric path negative. Rota negative Rhabdomyolysis Improved with IVF hydration, UTI d/c Rocephin IV as Urine culture negative HIV Treated with HAART therapy Hypertension, Hyperlipidemia, Hypothyroidism Treated with outpatient medications Diabetes 2 Treated with Metformin and ISS DVT prophylaxis: B-SCDs Pt Condition on Discharge: Good Discharge Disposition: Discharge Home Discharge Time: <= 30 minutes Discharge Instructions DIET: Follow Instructions for: Heart Healthy Diet Activities you can perform: Regular-No Restrictions Abdoul Crouch MD Dec 10, 2017 12:32
== END 2017-12-10 13:30 | disposition home or self-care (01) | DRG 557 ==
LOC: NEPC 11:47 → NEDA 14:58 → N04A 16:04
PROVIDERS: ADMIT Hospitalist; ATTEND Hospitalist
DX: M62.82 Rhabdomyolysis (principal); B20 Human immunodeficiency virus [HIV] disease; N39.0 Urinary tract infection, site not specified; E78.00 Pure hypercholesterolemia, unspecified; E11.9 Type 2 diabetes mellitus without complications; H91.90 Unspecified hearing loss, unspecified ear; I10 Essential (primary) hypertension; E07.9 Disorder of thyroid, unspecified; R19.7 Diarrhea, unspecified; R06.02 Shortness of breath; E03.9 Hypothyroidism, unspecified; Z72.0 Tobacco use; Z79.84 Long term (current) use of oral hypoglycemic drugs
CPT/HCPCS: 71045; 80048; 80053; 81001; 82550; 82552; 82948; 83036; 83690; 84484; 85025; 87040; 87086; 87207; 87328; 87329; 87425; 87493; 87506; 93005; 94664; 96361; 96374; 96375; J0696; J0780; J1815; J7030; P9612